=== PATIENT | male | born 1940 | race Caucasian/White ===

== ENCOUNTER 2018-07-27 19:49 | Inpatient (IN) | payer MEDICARE ==
[~2018-07-27] VITALS: Ht 177.8 cm; Wt 89.0 kg
--- NOTE | ~2018-07-27 | MORECARE ---
CASE MANAGEMENT DISCHARGE SUMMARY PATIENT: GELY ZUÑIGA UNIT: [id number] ADM DATE: 07/27/18 AGE: 77 : 38 SEX: M ROOM/BED: D.2309 AUTHOR: TYRONE DURAND PHYSICIAN: REFERRING PHYSICIAN: ROYCE MONTAGUE MD DATE OF SERVICE: 08/09/18 Discharge Plan Patient Name: GELY ZUÑIGA Facility: [facility]:[place] : 1940 Planned Disposition: Home Anticipated Discharge Date: Discharge Date: 08/06/2018 Expected LOS: Initial Reviewer: [email or web address] Initial Review Date: 07/27/2018 Generated: 08/09/18 11:05 am Comments DCP- Discharge Planning Updated by [email or web address]: Shanae Pennington on 08/06/18 12:[address] CM received notice that we had received court order for terminal extubation / DNR status. CM contacted daughter Alicia Zuñiga she stated that is was alright with terminal extubation. She stated that is what her Dad would want. She states she isn't going to come up here for extubation. Alicia states that she will get in touch with her brother that lives in [place], [place]. Alicia states that the home will be [facility] in [place]. CM let Alicia know that staff would let her know of passing when it occurs. CM also notified Denise with [employer] of the court order and faxed it to her. [phone]. DCP- Discharge Planning Updated by [email or web address]: Tita Bergeron on 07/31/18 5:[address] LATE ENTRY 1180 PRIMARY NURSE ADVISED CM THAT PATIENT WILL HAVE AN ORDER FOR HOSPICE. PLANNING A TERMINAL EXTUBATION TODAY. CM REVIEWED PATIENT'S CHART. HE IS A RESIDENT AT [facility] IN [place], [place]. HE REPORTEDLY WAS ON HOSPICE AT THE FACILITY. CM TELEPHONED [facility] AND SPOKE WITH ONEIL NIELSEN. THE PATIENT IS UNDER APS CUSTODY. HE HAD A DNR/ DNI ORDER THAT HAD NOT BEEN SIGNED BY A STORE MANAGER. SHE STATES THAT IS WHY THEY TRANSFERED HIM FOR ACUTE CARE. ADELINE MARTIN IS HIS APS COUNSELOR. CM RECEIVED THE CONTACT PHONE NUMBER [phone] BUT BUSINESS PHONE NUMBER IS [phone] EXT [phone]. FAX [phone]. JERMAINE CALLED NURSING VIDEOTAPE SALES REPRESENTATIVE, CHAGO, TO ADVISE OF STATUS. TC TO MS MARTIN. SHE STATED THE PATIENT IS A FULL CODE! HE CANNOT BE EXTUBATED! THE APS COUNSELOR WILL FOLLOW UP WITH THE STORE MANAGER ON THURSDAY. SHE REPEATED THE SAME TO CHAGO, THE VIDEOTAPE SALES REPRESENTATIVE. PRIMARY NURSE, CHARGE NURSE, RESP THERAPIST NOTIFIED. PRIMARY NURSE NOTIFIED DR MONTAGUE. JERMAINE WAS ASK TO SPEAK WITH DR MONTAGUE. HE STATED HE HAD SPOKEN WITH APPROPRIATE AUTHORITIES REGARDING THIS CASE , LEGAL AND MEDICAL ETHICIST. HAS DOCUMENTED SUGGESTED. HE HAD AN ADDITIONAL MD REVIEW THE CASE NOT CLOSELY ASSOCIATED. HE HAD ALSO SPOKEN WITH THE PATIENT'S DAUGHTER THIS AM. SHE IS IN AGREEMENT WITH THE PLAN. JERMAINE SPOKE WITH THE NURSING VIDEOTAPE SALES REPRESENTATIVE TO HAVE PRODUCTION PAINTER RECORDS CLERK DISCUSS WITH MD. TC TO NURSING VIDEOTAPE SALES REPRESENTATIVE FOR OUTCOME. AT THIS TIME, THE PATIENT IS BEING TREATED FULL CODE AND WILL REMAIN ON VENTILATOR. ALL PARTIES NOTIFIED. DR MUNGUIA VISITED THIS AFTERNOON. DCP- Discharge Planning Updated by [id number]: Jesi Morse on 07/29/18 2:[address] attempted to see patient for DC assessment, patient was sleeping will try again at a later date Last DP export: 08/06/18 3:50 Patient Name: GELY ZUÑIGA Page [id number] at 1005 All edits/amendments must be made on the electronic document DICTATION DATE: 08/09/18 1005 GALLERY OR MUSEUM ATTENDANT: JAVIER 08/09/18 1005 RPT#: [id number] DC DATE:08/06/18 STATUS: DIS IN [facility] [address] [place] [address] END OF REPORT
--- NOTE | ~2018-07-27 | MORECARE ---
CASE MANAGEMENT DISCHARGE SUMMARY PATIENT: GELY ZUÑIGA UNIT: [id number] ADM DATE: 07/27/18 AGE: 77 : 38 SEX: M ROOM/BED: D.2309 AUTHOR: KIZZYDOC PHYSICIAN: REFERRING PHYSICIAN: ROYCE MONTAGUE MD DATE OF SERVICE: 07/31/18 Discharge Plan Patient Name: GELY ZUÑIGA Facility: [facility]:[place] : 1940 Planned Disposition: Home Anticipated Discharge Date: Discharge Date: Expected LOS: Initial Reviewer: [email or web address] Initial Review Date: 07/27/2018 Generated: 07/31/18 7:13 pm Comments DCP- Discharge Planning Updated by [email or web address]: Tita Bergeron on 07/31/18 5:[address] LATE ENTRY 1245 PRIMARY NURSE ADVISED CM THAT PATIENT WILL HAVE AN ORDER FOR HOSPICE. PLANNING A TERMINAL EXTUBATION TODAY. CM REVIEWED PATIENT'S CHART. HE IS A RESIDENT AT [facility] IN [place], [place]. HE REPORTEDLY WAS ON HOSPICE AT THE FACILITY. JERMAINE TELEPHONED [facility] AND SPOKE WITH ONEIL NIELSEN. THE PATIENT IS UNDER APS CUSTODY. HE HAD A DNR/ DNI ORDER THAT HAD NOT BEEN SIGNED BY A HIDE PULLER. SHE STATES THAT IS WHY THEY TRANSFERED HIM FOR ACUTE CARE. ADELINE MARTIN IS HIS APS COUNSELOR. JERMAINE RECEIVED THE CONTACT PHONE NUMBER [phone] BUT BUSINESS PHONE NUMBER IS [phone] EXT [phone]. FAX [phone]. JERMAINE CALLED NURSING STUCCO MASON, CHAGO, TO ADVISE OF STATUS. TC TO MS MARTIN. SHE STATED THE PATIENT IS A FULL CODE! HE CANNOT BE EXTUBATED! THE APS COUNSELOR WILL FOLLOW UP WITH THE HIDE PULLER ON THURSDAY. SHE REPEATED THE SAME TO CHAGO, THE STUCCO MASON. PRIMARY NURSE, CHARGE NURSE, RESP THERAPIST NOTIFIED. PRIMARY NURSE NOTIFIED DR MONTAGUE. JERMAINE WAS ASK TO SPEAK WITH DR MONTAGUE. HE STATED HE HAD SPOKEN WITH APPROPRIATE AUTHORITIES REGARDING THIS CASE , LEGAL AND MEDICAL ETHICIST. HAS DOCUMENTED SUGGESTED. HE HAD AN ADDITIONAL MD REVIEW THE CASE NOT CLOSELY ASSOCIATED. HE HAD ALSO SPOKEN WITH THE PATIENT'S DAUGHTER THIS AM. SHE IS IN AGREEMENT WITH THE PLAN. JERMAINE SPOKE WITH THE NURSING STUCCO MASON TO HAVE MARINE ARCHITECT CALCINER FEEDER DISCUSS WITH MD. FUNK TO NURSING STUCCO MASON FOR OUTCOME. AT THIS TIME, THE PATIENT IS BEING TREATED FULL CODE AND WILL REMAIN ON VENTILATOR. ALL PARTIES NOTIFIED. DR MUNGUIA VISITED THIS AFTERNOON. DCP- Discharge Planning Updated by [id number]: Jesi Morse on 07/29/18 2:[address] attempted to see patient for DC assessment, patient was sleeping will try again at a later date Last DP export: 07/31/18 5:07 Patient Name: GELY ZUÑIGA Page [id number] at 1813 All edits/amendments must be made on the electronic document DICTATION DATE: 07/31/181812 GLUING MACHINE OPERATOR AUTOMATIC: JAVIER 07/31/181812 RPT#: [id number] DC DATE: STATUS: ADM IN [facility] [address] [place] [address] END OF REPORT
--- NOTE | ~2018-07-27 | MORECARE ---
CASE MANAGEMENT DISCHARGE SUMMARY PATIENT: GELY ZUÑIGA UNIT: [id number] ADM DATE: 07/27/18 AGE: 77 : 38 SEX: M ROOM/BED: D.2309 AUTHOR: KIZZYDOC PHYSICIAN: REFERRING PHYSICIAN: ROYCE MONTAGUE MD DATE OF SERVICE: 07/31/18 Discharge Plan Patient Name: GELY ZUÑIGA Facility: [facility]:[place] : 1940 Planned Disposition: Home Anticipated Discharge Date: Discharge Date: Expected LOS: Initial Reviewer: [email or web address] Initial Review Date: 07/27/2018 Generated: 07/31/18 7:06 pm Comments DCP- Discharge Planning Updated by [email or web address]: Tita Bergeron on 07/31/18 5:[address] LATE ENTRY 1245 PRIMARY NURSE ADVISED CM THAT PATIENT WILL HAVE AN ORDER FOR HOSPICE. PLANNING A TERMINAL EXTUBATION TODAY. CM REVIEWED PATIENT'S CHART. HE IS A RESIDENT AT [facility] IN [place], [place]. HE REPORTEDLY WAS ON HOSPICE AT THE FACILITY. JERMAINE TELEPHONED [facility] AND SPOKE WITH ONEIL NIELSEN. THE PATIENT IS UNDER APS CUSTODY. HE HAD A DNR/ DNI ORDER THAT HAD NOT BEEN SIGNED BY A VOCATIONAL TECHNICAL EDUCATION TEACHER. SHE STATES THAT IS WHY THEY TRANSFERED HIM FOR ACUTE CARE. ADELINE MARTIN IS HIS APS COUNSELOR. JERMAINE RECEIVED THE CONTACT PHONE NUMBER [phone] BUT BUSINESS PHONE NUMBER IS [phone] EXT [phone]. FAX [phone]. JERMAINE CALLED NURSING GERIATRIC SOCIAL WORKER, CHAGO, TO ADVISE OF STATUS. TC TO MS MARTIN. SHE STATED THE PATIENT IS A FULL CODE! HE CANNOT BE EXTUBATED! THE APS COUNSELOR WILL FOLLOW UP WITH THE VOCATIONAL TECHNICAL EDUCATION TEACHER ON THURSDAY. SHE REPEATED THE SAME TO CHAGO, THE GERIATRIC SOCIAL WORKER. PRIMARY NURSE, CHARGE NURSE, RESP THERAPIST NOTIFIED. PRIMARY NURSE NOTIFIED DR MONTAGUE. JERMAINE WAS ASK TO SPEAK WITH DR MONTAGUE. HE STATED HE HAD SPOKEN WITH APPROPRIATE AUTHORITIES REGARDING THIS CASE , LEGAL AND MEDICAL ETHICIST. HAS DOCUMENTED SUGGESTED. HE HAD AN ADDITIONAL MD REVIEW THE CASE NOT CLOSELY ASSOCIATED. HE HAD ALSO SPOKEN WITH THE PATIENT'S DAUGHTER THIS AM. SHE IS IN AGREEMENT WITH THE PLAN. JERMAINE SPOKE WITH THE NURSING GERIATRIC SOCIAL WORKER TO HAVE SLATE CUTTER OPERATOR DOWEL PIN MAN DISCUSS WITH MD. FUNK TO NURSING GERIATRIC SOCIAL WORKER FOR OUTCOME. AT THIS TIME, THE PATIENT IS BEING TREATED FULL CODE AND WILL REMAIN ON VENTILATOR. ALL PARTIES NOTIFIED. DR MUNGUIA VISITED THIS AFTERNOON. DCP- Discharge Planning Updated by [id number]: Jesi Morse on 07/29/18 2:[address] attempted to see patient for DC assessment, patient was sleeping will try again at a later date Last DP export: 07/29/18 2:59 Patient Name: GELY ZUÑIGA Page [id number] at 1807 All edits/amendments must be made on the electronic document DICTATION DATE: 07/31/181805 HOSE COUPLING JOINER: JAVIER 07/31/181805 RPT#: [id number] DC DATE: STATUS: ADM IN [facility] [address] [place] [address] END OF REPORT
--- NOTE | ~2018-07-27 | MORECARE ---
CASE MANAGEMENT DISCHARGE SUMMARY PATIENT: GELY ZUÑIGA UNIT: [id number] ADM DATE: 07/27/18 AGE: 77 : 38 SEX: M ROOM/BED: D.2309 AUTHOR: TYRONE DURAND PHYSICIAN: REFERRING PHYSICIAN: ROYCE MONTAGUE MD DATE OF SERVICE: 08/06/18 Discharge Plan Patient Name: GELY ZUÑIGA Facility: [facility]:[place] : 1940 Planned Disposition: Home Anticipated Discharge Date: Discharge Date: Expected LOS: Initial Reviewer: [email or web address] Initial Review Date: 07/27/2018 Generated: 08/06/18 5:50 pm Comments DCP- Discharge Planning Updated by [email or web address]: Shanae Pennington on 08/06/18 12:[address] CM received notice that we had received court order for terminal extubation / DNR status. CM contacted daughter Alicia Zuñiga she stated that is was alright with terminal extubation. She stated that is what her Dad would want. She states she isn't going to come up here for extubation. Alicia states that she will get in touch with her brother that lives in [place], [place]. Alicia states that the home will be [facility] in [place]. CM let Alicia know that staff would let her know of passing when it occurs. CM also notified Denise with [employer]PS of the court order and faxed it to her. [phone]. DCP- Discharge Planning Updated by [email or web address]: Tita Bergeron on 07/31/18 5:[address] LATE ENTRY 3141 PRIMARY NURSE ADVISED CM THAT PATIENT WILL HAVE AN ORDER FOR HOSPICE. PLANNING A TERMINAL EXTUBATION TODAY. CM REVIEWED PATIENT'S CHART. HE IS A RESIDENT AT [facility] IN [place], [place]. HE REPORTEDLY WAS ON HOSPICE AT THE FACILITY. CM TELE[facility]ED [facility] AND SPOKE WITH ONEIL NIELSEN. THE PATIENT IS UNDER APS CUSTODY. HE HAD A DNR/ DNI ORDER THAT HAD NOT BEEN SIGNED BY A PRINT PRODUCTION ASSOCIATE. SHE STATES THAT IS WHY THEY TRANSFERED HIM FOR ACUTE CARE. ADELINE MARTIN IS HIS APS COUNSELOR. JERMAINE RECEIVED THE CONTACT PHONE NUMBER [phone] BUT BUSINESS PHONE NUMBER IS [phone] EXT [phone]. FAX [phone]. JERMAINE CALLED NURSING FEEDER/FOLDER, CHAGO, TO ADVISE OF STATUS. TC TO MS MARTIN. SHE STATED THE PATIENT IS A FULL CODE! HE CANNOT BE EXTUBATED! THE APS COUNSELOR WILL FOLLOW UP WITH THE PRINT PRODUCTION ASSOCIATE ON THURSDAY. SHE REPEATED THE SAME TO CHAGO, THE FEEDER/FOLDER. PRIMARY NURSE, CHARGE NURSE, RESP THERAPIST NOTIFIED. PRIMARY NURSE NOTIFIED DR MONTAGUE. JERMAINE WAS ASK TO SPEAK WITH DR MONTAGUE. HE STATED HE HAD SPOKEN WITH APPROPRIATE AUTHORITIES REGARDING THIS CASE , LEGAL AND MEDICAL ETHICIST. HAS DOCUMENTED SUGGESTED. HE HAD AN ADDITIONAL MD REVIEW THE CASE NOT CLOSELY ASSOCIATED. HE HAD ALSO SPOKEN WITH THE PATIENT'S DAUGHTER THIS AM. SHE IS IN AGREEMENT WITH THE PLAN. JERMAINE SPOKE WITH THE NURSING FEEDER/FOLDER TO HAVE LOCKSTITCH WAISTBAND SETTER COMMERCIAL SHEET METAL FOREMAN DISCUSS WITH MD. GOOD TO NURSING FEEDER/FOLDER FOR OUTCOME. AT THIS TIME, THE PATIENT IS BEING TREATED FULL CODE AND WILL REMAIN ON VENTILATOR. ALL PARTIES NOTIFIED. DR MUNGUIA VISITED THIS AFTERNOON. DCP- Discharge Planning Updated by [email or web address]: Jesi Morse on 07/29/18 2:[address] attempted to see patient for DC assessment, patient was sleeping will try again at a later date Last DP export: 08/06/18 12:08 Patient Name: GELY ZUÑIGA Page [id number] at 1650 All edits/amendments must be made on the electronic document DICTATION DATE: 08/06/181649 SCHOOL COMMUNITY RELATIONS COORDINATOR: JAVIER 08/06/181649 RPT#: [id number] DC DATE: STATUS: ADM IN [facility] [address] [place] [address] END OF REPORT
--- NOTE | ~2018-07-27 | OP ---
PATIENT NAME: GELY ZUÑIGA MEDICAL RECORD: [id number] :[birth year] LOCATION:.[facility] D.2309 ADMISSION DATE:07/27/18 SURGEON: RICK PURVIS MD DATE OF OPERATION: 07/29/2018 PREOPERATIVE DIAGNOSES: 1. Cardiopulmonary arrest. 2. Pulseless electrical activity. POSTOPERATIVE DIAGNOSES: 1. Cardiopulmonary arrest. 2. Pulseless electrical activity. PROCEDURES: 1. Endotracheal intubation with an 8.0-mm endotracheal tube. 2. The 42 minutes of critical care time. SURGEON: Rick Purvis MD CRYSTALIZER: None. BLOOD LOSS: Minimal. ANESTHESIA: None. COMPLICATIONS: None. The 42 minutes of critical care time was exclusive of time spent performing any procedures. DESCRIPTION OF PROCEDURE: I responded to a code blue resuscitation. I was the first physician to respond. A code blue team arrived very quickly. Dr. Espana was in charge of the resuscitative efforts. I began to bag valve mask the patient as chest compressions were already in progress. I continued to manage the patient's airway. I gave orders with regards to IV medications. The patient's initial rhythm was asystole. I assisted the nurse in obtaining an external jugular line. We began to force crystalloid through the EJ line, which was used for medications including atropine and epinephrine as well as vasopressin. Chest compressions continued. We had a good pulse with compressions. During a pulse check, I inserted the Conde laryngoscope into the patient's mouth and there was a lot of dried secretions within the mouth and these were in congealed balls of the material. There may be a tumor within the patient's throat and this would be consistent with what the nurses are telling me. I obtained history from the nurses. I did not attempt to insert the endotracheal tube as I really did not have a good view of the cords. We continued to bag valve mask ventilate the patient, which was proceeding well. During a further pulse check, I inserted the Coy vision. I was able to visualize the cords easily. I was able to advance an 8.0-mm endotracheal tube on the first try atraumatically. It was advanced to 23 cm. The cuff was inflated. We began ventilating. There was good color change on the CO2 monitor. Good bilateral breath sounds. No sounds over the stomach. Chest compressions continued. The endotracheal tube was secured. The PEA persisted and then it broke. We retained a rhythm with spontaneous return of circulation. I accompanied the patient to the intensive care unit and I checked on him there. As vasopressin had been used, we also gave him a dose of steroids. This OPERATIVE REPORT [id number] GELY ZUÑIGA was done per a published scientific protocol. In the intensive care unit, he continued to have a pulsatile rhythm and was fairly normotensive. Evidently, the patient has been on hospice in the past, but was recently admitted to the hospital and his prior DNR status has not been continued. There is some situation dealing with him being under adult protective services' custody. My involvement in critical care time included managing a portion of the code blue resuscitation, ordering fluids, ordering medications, evaluation of the patient's post-intubation chest x-ray, which revealed pulmonary edema with no pneumothorax and a well-placed endotracheal tube. I gave final verbal orders to the patient's ICU nurse. TRANSINT:[id number] Voice Confirmation ID: [id number] DOCUMENT ID: [id number] RICK PURVIS MD at 1708 CC: [id number] DICTATION DATE: 07/31/18 0947 FINANCIAL REPORTING CONSULTANT: 07/31/18 1100 ADM IN [facility] [address] [place] [id number]
--- NOTE | ~2018-07-27 | MORECARE ---
CASE MANAGEMENT DISCHARGE SUMMARY PATIENT: GELY ZUÑIGA UNIT: [id number] ADM DATE: 07/27/18 AGE: 77 : 38 SEX: M ROOM/BED: D.2309 AUTHOR: TYRONE DURAND PHYSICIAN: REFERRING PHYSICIAN: ROYCE MONTAGUE MD DATE OF SERVICE: 08/06/18 Discharge Plan Patient Name: GELY ZUÑIGA Facility: [facility]:[place] : 1940 Planned Disposition: Home Anticipated Discharge Date: Discharge Date: Expected LOS: Initial Reviewer: [email or web address] Initial Review Date: 07/27/2018 Generated: 08/06/18 2:08 pm Comments DCP- Discharge Planning Updated by [email or web address]: Shanae Pennington on 08/06/18 12:[address] CM received notice that we had received court order for terminal extubation / DNR status. CM contacted daughter Alicia Zuñiga she stated that is was alright with terminal extubation. She stated that is what her Dad would want. She states she isn't going to come up here for extubation. Alicia states that she will get in touch with her brother that lives in [place], [place]. Alicia states that the home will be [facility] in [place]. CM let Alicia know that staff would let her know of passing when it occurs. CM also notified Denise with [employer]PS of the court order and faxed it to her. [phone]. DCP- Discharge Planning Updated by [email or web address]: Tita Bergeron on 07/31/18 5:[address] LATE ENTRY 1245 PRIMARY NURSE ADVISED CM THAT PATIENT WILL HAVE AN ORDER FOR HOSPICE. PLANNING A TERMINAL EXTUBATION TODAY. CM REVIEWED PATIENT'S CHART. HE IS A RESIDENT AT [facility] IN [place], [place]. HE REPORTEDLY WAS ON HOSPICE AT THE FACILITY. CM TELEPHONED [facility] TO [facility] AND SPOKE WITH ONEIL NIELSEN. THE PATIENT IS UNDER APS CUSTODY. HE HAD A DNR/ DNI ORDER THAT HAD NOT BEEN SIGNED BY A INPUT OUTPUT CLERK. SHE STATES THAT IS WHY THEY TRANSFERED HIM FOR ACUTE CARE. ADELINE MARTIN IS HIS APS COUNSELOR. JERMAINE RECEIVED THE CONTACT PHONE NUMBER [phone] BUT BUSINESS PHONE NUMBER IS [phone] EXT [phone]. FAX [phone]. JERMAINE CALLED NURSING MEMBERSHIP SOLICITOR, CHAGO, TO ADVISE OF STATUS. TC TO MS MARTIN. SHE STATED THE PATIENT IS A FULL CODE! HE CANNOT BE EXTUBATED! THE APS COUNSELOR WILL FOLLOW UP WITH THE INPUT OUTPUT CLERK ON THURSDAY. SHE REPEATED THE SAME TO CHAGO, THE MEMBERSHIP SOLICITOR. PRIMARY NURSE, CHARGE NURSE, RESP THERAPIST NOTIFIED. PRIMARY NURSE NOTIFIED DR MONTAGUE. JERMAINE WAS ASK TO SPEAK WITH DR MONTAGUE. HE STATED HE HAD SPOKEN WITH APPROPRIATE AUTHORITIES REGARDING THIS CASE , LEGAL AND MEDICAL ETHICIST. HAS DOCUMENTED SUGGESTED. HE HAD AN ADDITIONAL MD REVIEW THE CASE NOT CLOSELY ASSOCIATED. HE HAD ALSO SPOKEN WITH THE PATIENT'S DAUGHTER THIS AM. SHE IS IN AGREEMENT WITH THE PLAN. JERMAINE SPOKE WITH THE NURSING MEMBERSHIP SOLICITOR TO HAVE JOINTER OPERATOR DISABILITY INSURANCE HEARING OFFICER DISCUSS WITH MD. GOOD TO NURSING MEMBERSHIP SOLICITOR FOR OUTCOME. AT THIS TIME, THE PATIENT IS BEING TREATED FULL CODE AND WILL REMAIN ON VENTILATOR. ALL PARTIES NOTIFIED. DR MUNGUIA VISITED THIS AFTERNOON. DCP- Discharge Planning Updated by [email or web address]: Jesi Morse on 07/29/18 2:[address] attempted to see patient for DC assessment, patient was sleeping will try again at a later date Last DP export: 07/31/18 5:13 Patient Name: GELY ZUÑIGA Page [id number] at 1308 All edits/amendments must be made on the electronic document DICTATION DATE: 08/06/18 1307 WARNING ANALYST: JAVIER 08/06/18 1307 RPT#: [id number] DC DATE: STATUS: ADM IN [facility] [address] [place] [address] END OF REPORT
[2018-07-27] MEDS ORDERED: LIBRIUM 10 MG C10 MG PO (20:11)
[2018-07-27] MEDS ORDERED: LASIX40 MG PO (20:12)
[2018-07-27] MEDS ORDERED: TRICOR145 MG PO (20:12)
[2018-07-27] MEDS ORDERED: VANCOMYCIN 1 GM/1 G1 IV (20:13)
[2018-07-27] MEDS ORDERED: MELATONIN 3 MG1 TAB PO (20:13)
[2018-07-27] MEDS ORDERED: SEROQUEL25 MG PO (20:14)
[2018-07-27] MEDS ORDERED: NEURONTIN 400400 MG PO (20:14)
[2018-07-27] MEDS ORDERED: SALAGEN5 MG PO (20:14)
[2018-07-27] MEDS ORDERED: DESERYL50 M2 PO (20:14)
[2018-07-27 20:16] VITALS: BP 117/53
[2018-07-27] MEDS ORDERED: ZOFRAN4 MG PO (20:16)
[2018-07-27] MEDS ORDERED: HYDROCODON-ACE1 EAC7 PO (20:16)
[2018-07-27] MEDS ORDERED: ATIVAN1 MG PO (20:17)
[2018-07-27] MEDS ORDERED: ORA RELIEF177 ML PO (20:17)
[2018-07-27 20:48] VITALS: BP 116/55
[2018-07-27 21:31] VITALS: BP 117/52
[2018-07-27 21:50] LABS: CKMB 1.5 U/L (0.0-3.6); CREATINE KINASE 126 UL (21-232)
[2018-07-27 21:51] LABS: TROPONIN-I 0.061 ng/mL (0.000-0.060)
[2018-07-27 22:31] VITALS: BP 118/55
[2018-07-27 23:40] VITALS: BP 121/55
[2018-07-28 00:32] VITALS: BP 107/70
[2018-07-28] MEDS ORDERED: COLACE50 MG/5 ML PO (01:18)
[2018-07-28 03:16] VITALS: BP 107/77; BMI 25.8
[2018-07-28 06:09] LABS: BASOPHILS 0.1 % (0-2); EOSINOPHILS 2.3 % (0-7); HEMATOCRIT 28.7 % (42.0-54.0); HEMOGLOBIN 8.8 g/dL (13.5-17.5); IMMATURE GRANULOCYTES 0.3 % (0-5); LYMPHOCYTES 8.3 % (15-50); MCHC 30.7 g/dL (31.0-37.0); MCV 91.4 fL (80.0-100.0); MEAN PLATELET VOLUME 10.4 fL (7.4-10.4); MONOCYTES 8.5 % (2-11); NEUTROPHILS 80.5 % (40-80); PLATELET COUNT 263 10x3/uL (130-400); RBC 3.14 10x6/uL (4.20-6.10); RDW 17.8 % (11.5-14.5); WBC 7.4 10x3/uL (4.8-10.8)
[2018-07-28 06:45] LABS: ALBUMIN 2.3 g/dL (3.4-5.0); ALKALINE PHOSPHATASE 55 U/L (46-116); ALT (SGPT) 27 U/L (10-68); BILIRUBIN - TOTAL 0.76 mg/dL (0.2-1.3); CALC OSMOLALITY 292 mosm/kg (275-300); CALCIUM 8.4 mg/dL (8.5-10.1); CARBON DIOXIDE 23.3 mmol/L (21.0-32.0); CHLORIDE - SERUM 108 mmol/L (98-107); CKMB 1.5 U/L (0.0-3.6); CREATINE KINASE 113 UL (21-232); CREATININE - SERUM 1.9 mg/dL (0.6-1.3); GLUCOSE 83 mg/dL (74-106); POTASSIUM - SERUM 3.4 mmol/L (3.5-5.1); PROTEIN - SERUM 6.8 g/dL (6.4-8.2); SODIUM 144 mmol/L (136-145); TROPONIN-I 0.038 ng/mL (0.000-0.060); UREA NITROGEN 32 mg/dL (7-18); eGFR NON AFRICAN AMERICAN 36 mL/min (90-120)
[2018-07-28 12:38] VITALS: BP 149/61
[2018-07-28 14:18] VITALS: BMI 25.8
[2018-07-28 15:49] VITALS: Ht 177.8 cm; Wt 89.0 kg
[2018-07-28 17:06] VITALS: BP 144/68
[2018-07-28 20:20] VITALS: BP 150/67
[2018-07-29] VITALS (8 sets, daily range): BP systolic 113–166; BP diastolic 54–77
[2018-07-29 06:26] LABS: ANION GAP 17.4 mmol/L (8-16); CALCIUM 7.9 mg/dL (8.5-10.1); CARBON DIOXIDE 20.2 mmol/L (21.0-32.0); CREATININE - SERUM 2.3 mg/dL (0.6-1.3); POTASSIUM - SERUM 3.6 mmol/L (3.5-5.1)
[2018-07-29 06:28] LABS: BASOPHILS 0.3 % (0-2); EOSINOPHILS 3.9 % (0-7); HEMATOCRIT 28.7 % (42.0-54.0); HEMOGLOBIN 8.8 g/dL (13.5-17.5); IMMATURE GRANULOCYTES 0.9 % (0-5); LYMPHOCYTES 13.1 % (15-50); MCHC 30.7 g/dL (31.0-37.0); MCV 91.4 fL (80.0-100.0); MEAN PLATELET VOLUME 10.6 fL (7.4-10.4); MONOCYTES 11.4 % (2-11); NEUTROPHILS 70.4 % (40-80); PLATELET COUNT 261 10x3/uL (130-400); RBC 3.14 10x6/uL (4.20-6.10); RDW 17.7 % (11.5-14.5); WBC 6.9 10x3/uL (4.8-10.8)
[2018-07-30] VITALS (24 sets, daily range): BP systolic 128–166; BP diastolic 65–94
[2018-07-30 06:17] LABS: BASOPHILS 0 % (0-2); EOSINOPHILS 0.1 % (0-7); HEMATOCRIT 28.8 % (42.0-54.0); HEMOGLOBIN 9.1 g/dL (13.5-17.5); IMMATURE GRANULOCYTES 0.4 % (0-5); LYMPHOCYTES 4.4 % (15-50); MCH 28.3 pg (26.0-34.0); MCHC 31.6 g/dL (31.0-37.0); MEAN PLATELET VOLUME 9.9 fL (7.4-10.4); MONOCYTES 1.3 % (2-11); NEUTROPHILS 93.8 % (40-80); RBC 3.22 10x6/uL (4.20-6.10); RDW 17.8 % (11.5-14.5); WBC 8.2 10x3/uL (4.8-10.8)
[2018-07-30 06:22] LABS: MCV 89.4 fL (80.0-100.0); PLATELET COUNT 331 10x3/uL (130-400)
[2018-07-30 06:28] LABS: CALCIUM 8.4 mg/dL (8.5-10.1); CARBON DIOXIDE 24.7 mmol/L (21.0-32.0); CREATININE - SERUM 2.7 mg/dL (0.6-1.3); POTASSIUM - SERUM 3.7 mmol/L (3.5-5.1)
[2018-07-31] VITALS (24 sets, daily range): BP systolic 124–160; BP diastolic 69–90
[2018-07-31 03:44] LABS: BASOPHILS 0.1 % (0-2); EOSINOPHILS 0 % (0-7); HEMATOCRIT 30.6 % (42.0-54.0); HEMOGLOBIN 9.5 g/dL (13.5-17.5); IMMATURE GRANULOCYTES 0.5 % (0-5); LYMPHOCYTES 6.7 % (15-50); MCH 27.9 pg (26.0-34.0); MCV 89.7 fL (80.0-100.0); MEAN PLATELET VOLUME 10.5 fL (7.4-10.4); MONOCYTES 12.8 % (2-11); NEUTROPHILS 79.9 % (40-80); PLATELET COUNT 325 10x3/uL (130-400); RBC 3.41 10x6/uL (4.20-6.10); RDW 18.1 % (11.5-14.5); WBC 14.2 10x3/uL (4.8-10.8)
[2018-07-31 03:51] LABS: ANION GAP 13.8 mmol/L (8-16); CALCIUM 7.7 mg/dL (8.5-10.1); CARBON DIOXIDE 29.3 mmol/L (21.0-32.0); CREATININE - SERUM 2.8 mg/dL (0.6-1.3); POTASSIUM - SERUM 4.1 mmol/L (3.5-5.1)
[2018-08-01] VITALS (24 sets, daily range): BP systolic 95–134; BP diastolic 60–84
[2018-08-01 04:17] LABS: BASOPHILS 0 % (0-2); EOSINOPHILS 0.6 % (0-7); HEMATOCRIT 27.2 % (42.0-54.0); HEMOGLOBIN 8.6 g/dL (13.5-17.5); IMMATURE GRANULOCYTES 0.4 % (0-5); LYMPHOCYTES 11.9 % (15-50); MCH 28.4 pg (26.0-34.0); MCHC 31.6 g/dL (31.0-37.0); MCV 89.8 fL (80.0-100.0); MEAN PLATELET VOLUME 9.9 fL (7.4-10.4); MONOCYTES 11.7 % (2-11); NEUTROPHILS 75.4 % (40-80); PLATELET COUNT 365 10x3/uL (130-400); RBC 3.03 10x6/uL (4.20-6.10); RDW 18.1 % (11.5-14.5); WBC 8.3 10x3/uL (4.8-10.8)
[2018-08-01 04:36] LABS: ANION GAP 10.6 mmol/L (8-16); CALCIUM 7.3 mg/dL (8.5-10.1); CARBON DIOXIDE 34.9 mmol/L (21.0-32.0); CREATININE - SERUM 2.9 mg/dL (0.6-1.3); POTASSIUM - SERUM 3.5 mmol/L (3.5-5.1); VANCOMYCIN - RANDOM 32.1 ug/mL (10.0-20.0)
[2018-08-02] VITALS (25 sets, daily range): BP systolic 78–117; BP diastolic 44–59
[2018-08-02 04:30] LABS: BASOPHILS 0.1 % (0-2); EOSINOPHILS 3.2 % (0-7); HEMATOCRIT 27.9 % (42.0-54.0); IMMATURE GRANULOCYTES 0.4 % (0-5); LYMPHOCYTES 9.9 % (15-50); MCH 28.9 pg (26.0-34.0); MCHC 32.3 g/dL (31.0-37.0); MCV 89.7 fL (80.0-100.0); MEAN PLATELET VOLUME 10.1 fL (7.4-10.4); MONOCYTES 10.6 % (2-11); NEUTROPHILS 75.8 % (40-80); PLATELET COUNT 310 10x3/uL (130-400); RBC 3.11 10x6/uL (4.20-6.10); WBC 8.4 10x3/uL (4.8-10.8)
[2018-08-02 04:57] LABS: ANION GAP 8.5 mmol/L (8-16); CARBON DIOXIDE 37.9 mmol/L (21.0-32.0); CREATININE - SERUM 2.9 mg/dL (0.6-1.3); POTASSIUM - SERUM 3.4 mmol/L (3.5-5.1); VANCOMYCIN - RANDOM 25.2 ug/mL (10.0-20.0)
[2018-08-03] VITALS (26 sets, daily range): BP systolic 85–123; BP diastolic 46–70
[2018-08-03 04:56] LABS: BASOPHILS 0.1 % (0-2); HEMATOCRIT 26.6 % (42.0-54.0); HEMOGLOBIN 8.1 g/dL (13.5-17.5); IMMATURE GRANULOCYTES 0.5 % (0-5); LYMPHOCYTES 6.3 % (15-50); MCH 27.6 pg (26.0-34.0); MCHC 30.5 g/dL (31.0-37.0); MCV 90.5 fL (80.0-100.0); MEAN PLATELET VOLUME 10.2 fL (7.4-10.4); MONOCYTES 7.1 % (2-11); PLATELET COUNT 303 10x3/uL (130-400); RBC 2.94 10x6/uL (4.20-6.10); WBC 9.4 10x3/uL (4.8-10.8)
[2018-08-03 05:04] LABS: ANION GAP 10.6 mmol/L (8-16); CALCIUM 7.3 mg/dL (8.5-10.1); CARBON DIOXIDE 35.9 mmol/L (21.0-32.0); CREATININE - SERUM 3.3 mg/dL (0.6-1.3); POTASSIUM - SERUM 3.5 mmol/L (3.5-5.1); VANCOMYCIN - RANDOM 23.1 ug/mL (10.0-20.0)
[2018-08-04] VITALS (25 sets, daily range): BP systolic 85–123; BP diastolic 46–78
[2018-08-04 04:43] LABS: BASOPHILS 0.1 % (0-2); EOSINOPHILS 3.9 % (0-7); HEMATOCRIT 25.5 % (42.0-54.0); HEMOGLOBIN 7.8 g/dL (13.5-17.5); IMMATURE GRANULOCYTES 0.6 % (0-5); LYMPHOCYTES 6.2 % (15-50); MCH 27.4 pg (26.0-34.0); MCHC 30.6 g/dL (31.0-37.0); MCV 89.5 fL (80.0-100.0); MEAN PLATELET VOLUME 10.6 fL (7.4-10.4); MONOCYTES 5.4 % (2-11); NEUTROPHILS 83.8 % (40-80); PLATELET COUNT 303 10x3/uL (130-400); RBC 2.85 10x6/uL (4.20-6.10); RDW 18.3 % (11.5-14.5); WBC 10.9 10x3/uL (4.8-10.8)
[2018-08-04 05:00] LABS: ANION GAP 11.9 mmol/L (8-16); CALCIUM 7.4 mg/dL (8.5-10.1); CARBON DIOXIDE 34.4 mmol/L (21.0-32.0); CREATININE - SERUM 3.4 mg/dL (0.6-1.3); PHOSPHOROUS 5.1 mg/dL (2.5-4.9); POTASSIUM - SERUM 3.3 mmol/L (3.5-5.1)
[2018-08-05] VITALS (24 sets, daily range): BP systolic 104–127; BP diastolic 52–68
[2018-08-05 04:54] LABS: BASOPHILS 0.1 % (0-2); EOSINOPHILS 2.4 % (0-7); HEMATOCRIT 27.9 % (42.0-54.0); HEMOGLOBIN 8.7 g/dL (13.5-17.5); IMMATURE GRANULOCYTES 0.6 % (0-5); LYMPHOCYTES 6.2 % (15-50); MCH 27.8 pg (26.0-34.0); MCHC 31.2 g/dL (31.0-37.0); MCV 89.1 fL (80.0-100.0); MEAN PLATELET VOLUME 10.9 fL (7.4-10.4); MONOCYTES 5.1 % (2-11); NEUTROPHILS 85.6 % (40-80); PLATELET COUNT 306 10x3/uL (130-400); RBC 3.13 10x6/uL (4.20-6.10); RDW 18.1 % (11.5-14.5); WBC 12.2 10x3/uL (4.8-10.8)
[2018-08-05 05:05] LABS: ANION GAP 11.5 mmol/L (8-16); CALCIUM 7.8 mg/dL (8.5-10.1); CARBON DIOXIDE 32.4 mmol/L (21.0-32.0); CREATININE - SERUM 3.4 mg/dL (0.6-1.3); VANCOMYCIN - RANDOM 18.9 ug/mL (10.0-20.0)
[2018-08-05 05:07] LABS: POTASSIUM - SERUM 3.9 mmol/L (3.5-5.1)
[2018-08-06] VITALS (14 sets, daily range): BP systolic 115–173; BP diastolic 60–80
[2018-08-06 03:16] LABS: BASOPHILS 0.2 % (0-2); EOSINOPHILS 3.9 % (0-7); HEMATOCRIT 28.7 % (42.0-54.0); HEMOGLOBIN 9.1 g/dL (13.5-17.5); IMMATURE GRANULOCYTES 0.7 % (0-5); LYMPHOCYTES 7.7 % (15-50); MCH 28.6 pg (26.0-34.0); MCHC 31.7 g/dL (31.0-37.0); MCV 90.3 fL (80.0-100.0); MEAN PLATELET VOLUME 10.9 fL (7.4-10.4); MONOCYTES 7.1 % (2-11); NEUTROPHILS 80.4 % (40-80); PLATELET COUNT 315 10x3/uL (130-400); RBC 3.18 10x6/uL (4.20-6.10); WBC 10.7 10x3/uL (4.8-10.8)
[2018-08-06 03:28] LABS: ANION GAP 15.2 mmol/L (8-16); CALCIUM 8.4 mg/dL (8.5-10.1); CARBON DIOXIDE 29.3 mmol/L (21.0-32.0); CREATININE - SERUM 3.4 mg/dL (0.6-1.3); PHOSPHOROUS 5.5 mg/dL (2.5-4.9); POTASSIUM - SERUM 4.5 mmol/L (3.5-5.1); VANCOMYCIN - RANDOM 17.2 ug/mL (10.0-20.0)
== END 2018-08-06 20:05 | DRG 207 ==
LOC: D.ER 19:49 → D.MS 22:45 → D.ICU 22:45
PROVIDERS: Emergency Medicine; Family Medicine; Internal Medicine Nephrology
PROC: 5A1955Z Respiratory Ventilation, Greater than 96 Consecutive Hours (ICD-10-PCS; principal; 2018-07-29)
PROC: 0BH17EZ Insertion of Endotracheal Airway into Trachea, Via Natural or Artificial Opening (ICD-10-PCS; 2018-07-29)
DX: J18.9 Pneumonia, unspecified organism (principal); J96.01 Acute respiratory failure with hypoxia; R40.2314 Coma scale, best motor response, none, 24 hours or more after hospital admission; R40.2214 Coma scale, best verbal response, none, 24 hours or more after hospital admission; R40.2124 Coma scale, eyes open, to pain, 24 hours or more after hospital admission; C41.1 Malignant neoplasm of mandible; M86.48 Chronic osteomyelitis with draining sinus, other site; N17.9 Acute kidney failure, unspecified; E46 Unspecified protein-calorie malnutrition; I24.8 Other forms of acute ischemic heart disease; G93.1 Anoxic brain damage, not elsewhere classified; Y95 Nosocomial condition; D64.9 Anemia, unspecified; Z66 Do not resuscitate; E78.5 Hyperlipidemia, unspecified; I73.9 Peripheral vascular disease, unspecified; F32.9 Major depressive disorder, single episode, unspecified